=== PATIENT | female | born 1965 | race African-American/Black ===

== ENCOUNTER → 2017-11-06 | Outpatient (CLI) | payer OTHER ==
[~2017-11-06] MED LIST: ALPRAZOLAM ER1 MG PO; ASPIR-TRIN325 MG PO; BACTROBAN CREAM30 G1 TOP; BLACK CHERRY JUICE; BLACK CHERRY OR; BUSPIRONE HCL10 MG; BUTALBITAL-APA1 EAC1 PO; CAMBIA50 MG PO; CENTRUM TABLET1 TAB PO; CLONAZEPAM 1 MG1 M1 PO; COMPAZINE10 MG; CYMBALTA30 MG PO; CYMBALTA60 MG PO; DOLOPHINE HCL10 MG PO; ELAVIL PO; EPIPEN0.3 MG/0.3 IM; EXALGO12 MG PO; IBUPROFEN 600600 M1; JUVEN PACKET1 EACH PO; KEFLEX500 MG PO; LATUDA40 MG PO; LORAZEPAM 1 MG T1 M1 PO; LUNESTA3 MG PO; MEDROL DOSPAK21 TAB PO; METHADONE HCL 110 M1 PO; MOBIC15 MG PO; MS CONTIN15 MG PO; NAPROXEN DELAY500 M1 PO; NEURONTIN300 MG PO; NORCO 5-325 TA1 EACH PO; NUCYNTA50 MG PO; OXYCODON-ACETA1 EAC1 PO; PENICILLIN VK500 M1 PO; PENNSAID150 ML TP; PERCOCET 10-321 EACH PO; PERCOCET 10-651 EACH; PHENERGAN25 MG RE; PREDNISONE 20 M20 MG PO; SEROQUEL 50 MG50 M1 PO; VITAMIN C + RO500 MG PO; ZINC CHELATE50 MG PO; ZOFRAN ODT4 MG PO
== END ==
LOC: NUC 05:31
DX: M25.571 Pain in right ankle and joints of right foot (principal); M79.89 Other specified soft tissue disorders

== ENCOUNTER 2018-03-02 19:03 | Inpatient (IN) | payer OTHER ==
[~2018-03-02] VITALS: Ht 162.6 cm; Wt 79.9 kg
--- NOTE | ~2018-03-02 | EKG ---
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
[~2018-03-02 19:03] MED LIST changes: +AMITRIPTYLINE H25 M2 PO; +ATIVAN1 MG PO; +DUEXIS 800-26.1 EACH PO; +LISINOPRIL-HCT1 EACH PO; +MORPHINE SULFAT30 M4 PO; +PROTANDIM PO; +SYNTHROID25 MC1 PO; +TOPAMAX 100 MG100 MG PO; +TOPAMAX50 MG PO; +VITAMIN D350000 UNIT PO
[2018-03-02 19:07] VITALS: BP 106/56
[2018-03-02] MEDS ORDERED: DICLOFENAC SODI75 MG PO (19:28)
[2018-03-02] MEDS ORDERED: COMPAZINE10 MG PO (19:29)
[2018-03-02] MEDS ORDERED: VIMOVO 500-201 EACH PO (19:31)
[2018-03-02] MEDS ORDERED: MELATONIN5 M1 PO (19:31)
[2018-03-02 20:42] LABS: ABSOLUTE NEUTROPHILS 4.3 thou/uL (1.4-8.2); BASOPHILS 0.3 % (0.0-2.0); EOSINOPHILS 3.2 % (0.0-3.0); HEMATOCRIT 32.5 % (37.0-47.0); HEMOGLOBIN 10.8 gm/dL (12.0-15.0); MCH 27.9 pg (26.0-34.0); MCHC 33.2 g/dL (28.0-37.0); MONOCYTES 8.9 % (1.0-8.0); PLATELET COUNT 316 thou/uL (150-400); POLYS 64.6 % (36.0-66.0); RBC 3.88 mil/uL (4.20-5.00); WBC 6.7 thou/uL (4.0-11.0)
[2018-03-02 20:47] LABS: ANION GAP 11 mmol/L (7-16); BUN 46 mg/dL (7-18); CALCIUM 9.2 mg/dL (8.5-10.1); CHLORIDE 101 mmol/L (98-107); CO2 23 mmol/L (21-32); CREATININE 2.4 mg/dL (0.6-1.0); GLUCOSE 93 mg/dL (74-106); POTASSIUM 4.2 mmol/L (3.5-5.1); SALICYLATE < 2.8 mg/dL (2.8-20.0); SODIUM 135 mmol/L (136-145)
[2018-03-02 20:56] LABS: AMP/METHAMP Negative (Negative); BARBITURATES Negative (Negative); BENZODIAZEPINES Negative (Negative); COCAINE Negative (Negative); METHADONE Negative (Negative); OPIATES POSITIVE (Negative); PCP Negative (Negative)
[2018-03-02 23:09] VITALS: BP 129/67
[2018-03-02 23:42] VITALS: BP 105/65
[2018-03-03 05:05] VITALS: BP 106/64
[2018-03-03 07:49] VITALS: BP 113/53
[2018-03-03 14:03] LABS: URINE BILIRUBIN NEGATIVE (Negative); URINE BLOOD NEGATIVE (Negative); URINE CLARITY CLEAR; URINE COLOR YELLOW; URINE GLUCOSE-RANDOM* NEGATIVE (Negative); URINE KETONES NEGATIVE (Negative); URINE LEUKOCYTES-REFLEX NEGATIVE (Negative); URINE NITRITE-REFLEX NEGATIVE (Negative); URINE PROTEIN (DIPSTICK) NEGATIVE (Negative); URINE UROBILINOGEN 0.2 E.U./dl (0.2-1.0)
[2018-03-03 15:14] VITALS: BP 103/70
[2018-03-03 19:33] VITALS: BP 115/68
[2018-03-04 03:56] VITALS: BP 107/65
[2018-03-04 07:15] VITALS: BP 110/67
[2018-03-04] MEDS ORDERED: PERCOCET 10-321 EACH PO (11:30)
[2018-03-04 11:52] VITALS: BP 110/67
[2018-03-04 12:23] VITALS: BP 110/67
== END 2018-03-04 12:30 | disposition home or self-care (01) | DRG 918 ==
LOC: ER 19:03 → EROBS 22:01 → 4W 22:01 → ENTRNSPT 03-04 12:20 → EDTRNSPTSTS 03-04 12:23 → 4W 03-04 12:30
PROVIDERS: Emergency Medicine; Nurse Practitioner Acute Care
DX: T50.991A Poisoning by other drugs, medicaments and biological substances, accidental (unintentional), initial encounter (principal); N17.9 Acute kidney failure, unspecified; I10 Essential (primary) hypertension; E03.9 Hypothyroidism, unspecified; G43.909 Migraine, unspecified, not intractable, without status migrainosus; F41.9 Anxiety disorder, unspecified; F32.9 Major depressive disorder, single episode, unspecified; G89.29 Other chronic pain; F17.210 Nicotine dependence, cigarettes, uncomplicated; Z80.7 Family history of other malignant neoplasms of lymphoid, hematopoietic and related tissues; Y92.89 Other specified places as the place of occurrence of the external cause; Z98.82 Breast implant status; Z90.49 Acquired absence of other specified parts of digestive tract; Z90.710 Acquired absence of both cervix and uterus; Z87.820 Personal history of traumatic brain injury; Z88.8 Allergy status to other drugs, medicaments and biological substances; Z91.018 Allergy to other foods; Z79.891 Long term (current) use of opiate analgesic; Z79.899 Other long term (current) drug therapy
CPT/HCPCS: 10045

== ENCOUNTER 2018-03-26 16:10 | Inpatient (IN) | payer OTHER ==
[~2018-03-26] VITALS: Ht 162.6 cm; Wt 72.6 kg
--- NOTE | ~2018-03-26 | EKG ---
[address] [address] ELECTROCARDIOGRAM REPORT Name: ARIAN ALDANA Room #: 427-P ADM IN M.R.#: [id number] Admission: 03/26/18 Attend Phys: Sj Herbert MD Discharge: Date of : 65 Report #: [id number] THIS REPORT FOR: //name// [facility] ED Test Date: 2018-03-26 Test Time: 16:36:48 Pat Name: ARIAN ALDANA Department: Room: [facility] Gender: F Harp Repairer: MZOOK : 1965 Requested By: Bill Garrison Order Number: [id number] MD: Arnie Cunningham Measurements Intervals [place] Rate: 91 P: 60 IN: 145 QRS: 26 QRSD: 89 T: 40 QT: 403 QTc: 496 Interpretive Statements Sinus rhythm Borderline prolonged QT interval Compared to ECG 03/02/2018 19:54:41 Sinus tachycardia no longer present Electronically Signed On 03-27-2018 13:00:26 CDT by Arnie Cunningham [email or web address] <ELECTRONICALLY SIGNED> By: Arnie Cunningham MD, [facility] 03/27/18 [facility] [address] Arnie Cunningham MD, [facility] /EPI
[~2018-03-26 16:10] MED LIST changes: +COMPAZINE10 MG PO; +DICLOFENAC SODI75 MG PO; +HYDROCODONE-AP1 EAC6 PO; +MELATONIN5 M1 PO; +MORPHINE SULFAT30 M2 PO; +VIMOVO 500-201 EACH PO; +VITAMIN D3 PO
[2018-03-26 16:29] LABS: ABSOLUTE NEUTROPHILS 6.6 thou/uL (1.4-8.2); BASOPHILS 0.4 % (0.0-2.0); EOSINOPHILS 2.6 % (0.0-3.0); HEMATOCRIT 33.5 % (37.0-47.0); HEMOGLOBIN 11.4 gm/dL (12.0-15.0); LYMPHOCYTES 27.1 % (24.0-44.0); MCHC 33.9 g/dL (28.0-37.0); MCV 85.5 fL (80.0-100.0); MONOCYTES 9.8 % (1.0-8.0); PLATELET COUNT 533 thou/uL (150-400); POLYS 60.1 % (36.0-66.0); RBC 3.92 mil/uL (4.20-5.00); WBC 10.9 thou/uL (4.0-11.0)
[2018-03-26 16:52] VITALS: BP 81/34
[2018-03-26 16:54] LABS: CALCIUM 8.5 mg/dL (8.5-10.1); CREATININE 2.6 mg/dL (0.6-1.0); POTASSIUM 3.5 mmol/L (3.5-5.1)
[2018-03-26 16:57] LABS: ALBUMIN 3.2 g/dL (3.4-5.0); TOTAL BILIRUBIN 0.7 mg/dL (<0.1-1.0); TOTAL PROTEIN 6.8 g/dL (6.4-8.2)
[2018-03-26] MEDS ORDERED: TOPAMAX50 MG PO (17:33)
[2018-03-26 18:36] VITALS: BP 96/42
[2018-03-26 19:24] VITALS: BP 100/39
[2018-03-26 19:57] VITALS: BP 94/39
[2018-03-27 01:39] LABS: URINE BILIRUBIN NEGATIVE (Negative); URINE BLOOD NEGATIVE (Negative); URINE CLARITY CLEAR; URINE COLOR YELLOW; URINE GLUCOSE-RANDOM* NEGATIVE (Negative); URINE KETONES NEGATIVE (Negative); URINE LEUKOCYTES-REFLEX NEGATIVE (Negative); URINE NITRITE-REFLEX NEGATIVE (Negative); URINE PROTEIN (DIPSTICK) NEGATIVE (Negative); URINE UROBILINOGEN 0.2 E.U./dl (0.2-1.0)
[2018-03-27 04:00] VITALS: BP 106/48
[2018-03-27 05:46] LABS: HEMATOCRIT 25.7 % (37.0-47.0); MCH 29.6 pg (26.0-34.0); MCHC 34.5 g/dL (28.0-37.0); MCV 85.8 fL (80.0-100.0); RBC 2.99 mil/uL (4.20-5.00); RDW 14.8 % (10.5-14.5); WBC 6.7 thou/uL (4.0-11.0)
[2018-03-27 05:56] LABS: HEMOGLOBIN 8.9 gm/dL (12.0-15.0)
[2018-03-27 06:06] LABS: CALCIUM 7.7 mg/dL (8.5-10.1); POTASSIUM 3.6 mmol/L (3.5-5.1)
[2018-03-27 06:11] LABS: CREATININE 1.1 mg/dL (0.6-1.0)
[2018-03-27 11:11] VITALS: BP 100/49
[2018-03-27 16:24] VITALS: BP 122/62
[2018-03-27 20:00] VITALS: BP 116/51
[2018-03-28 04:00] VITALS: BP 126/72
[2018-03-28 07:15] VITALS: BP 106/69
[2018-03-28 20:23] VITALS: BP 117/67
[2018-03-29 04:15] VITALS: BP 140/78
[2018-03-29 09:21] VITALS: BP 103/44
[2018-03-29] MEDS ORDERED: MS CONTIN15 MG PO (13:11)
[2018-03-29 15:53] VITALS: BP 119/67
[2018-03-29 19:20] VITALS: BP 132/68
[2018-03-30 04:19] VITALS: BP 114/72
[2018-03-30 07:08] VITALS: BP 106/60
[2018-03-30 08:41] VITALS: BP 106/60
[2018-03-30 09:47] VITALS: BP 106/60
[2018-03-30 10:11] VITALS: BP 106/60
[2018-03-30 10:41] VITALS: BP 106/60
== END 2018-03-30 11:52 | disposition home health service (06) | DRG 314 ==
LOC: ER 16:10 → EROBS 18:30 → 4E 18:30 → ENTRNSPT 03-30 11:07 → EDTRNSPTSTS 03-30 11:10 → 4E 03-30 11:52
PROVIDERS: Hospitalist; Physician Assistant
DX: I95.9 Hypotension, unspecified (principal); N17.0 Acute kidney failure with tubular necrosis; E87.1 Hypo-osmolality and hyponatremia; I10 Essential (primary) hypertension; E03.9 Hypothyroidism, unspecified; G43.909 Migraine, unspecified, not intractable, without status migrainosus; F41.9 Anxiety disorder, unspecified; E86.0 Dehydration; E86.9 Volume depletion, unspecified; G89.29 Other chronic pain; Z96.642 Presence of left artificial hip joint; T40.605A Adverse effect of unspecified narcotics, initial encounter; Y92.89 Other specified places as the place of occurrence of the external cause; Z90.49 Acquired absence of other specified parts of digestive tract; Z87.891 Personal history of nicotine dependence; Z90.710 Acquired absence of both cervix and uterus; Z98.84 Bariatric surgery status; Z87.820 Personal history of traumatic brain injury; Z79.82 Long term (current) use of aspirin; Z79.899 Other long term (current) drug therapy; Z88.8 Allergy status to other drugs, medicaments and biological substances; Z91.018 Allergy to other foods; Z80.7 Family history of other malignant neoplasms of lymphoid, hematopoietic and related tissues
CPT/HCPCS: 10183